=== PATIENT | female | born 1965 | race Caucasian/White ===

== ENCOUNTER 2020-07-05 16:57 | Emergency (ER) | payer MEDICARE, OTHER ==
[2020-07-05] MEDS ORDERED: AMITRIPTYLIN10 MG PO (17:55)
[2020-07-05] MEDS ORDERED: HYDROXYZ HCL25 MG PO (17:56)
[2020-07-05] MEDS ORDERED: COMBIVENT RESPIMAT IN (17:57)
[2020-07-05] MEDS ORDERED: AMOX/K CLAV875 M1 PO (18:02)
[2020-07-05] MEDS ORDERED: ULTRAM50 M1 PO (18:02)
[2020-07-05 18:45] VITALS: BP 103/63
== END 2020-07-05 18:45 | disposition home or self-care (01) ==
LOC: ED 16:57
DX: S43.402A Unspecified sprain of left shoulder joint, initial encounter (principal); S60.471A Other superficial bite of left index finger, initial encounter; S60.473A Other superficial bite of left middle finger, initial encounter; J44.9 Chronic obstructive pulmonary disease, unspecified; F32.9 Major depressive disorder, single episode, unspecified; W54.0XXA Bitten by dog, initial encounter; W01.0XXA Fall on same level from slipping, tripping and stumbling without subsequent striking against object, initial encounter